=== PATIENT | female | born 1990 | race Caucasian/White ===

== ENCOUNTER 2024-11-13 15:08 | Emergency (ER) | payer OTHER, SELFPAY ==
--- OUTSIDE RECORDS SUMMARY | 2024-11-13 15:10 | XMS_ITS | Clinical Summary ---
Author Organization [facility] Address [place], [place] [address] Care Team Providers Care Vamp Marker Name Role Phone Pcp, No Primary Care Provider Unavailabl e Allergies No known active allergies Medications traMADol (ULTRAM) 50 mg tablet Take 1 tablet by mouth every 6 hours if needed for Pain. 0 5 Active acetaminophen (TYLENOL EXTRA STRGTH) 500 mg tablet Take 1 tablet by mouth every 6 hours if needed. Max acetaminophen dose: 4000mg in 24 hrs. 0 5 Active calcium with vitamin D3 (CALCIUM 500+D) tablet Take 1 tablet by mouth once daily with a meal. 0 5 Active Social History Tobacco Use Types Packs/Day Years Used Date Smoking Tobacco: Never Alcohol Use Standard Drinks/Week Comments Not Asked 0 (1 standard drink = 0.6 oz pur e alcohol) Comments No Sex and Gender Information Value Date Recorded Sex Assigned at Not on file Legal Sex Female 7:05 PM CDT Gender Identity Not on file Sexual Orientation Not on file Obstetrics History Last Filed Vital Signs Vital Sign Reading Time Taken Comments Blood Pressure 119/80 03/11/2015 7:30 PM CDT Pulse 80 03/11/2015 7:30 PM CDT Temperature 37.2 C (99 F) 03/11/2015 7:30 PM CDT Respiratory Rate 16 03/11/2015 7:30 PM CDT Oxygen Saturation 96% 03/11/2015 7:30 PM CDT Inhaled Oxygen Concentration - - Weight 77.1 kg (170 lb) 03/11/2015 7:30 PM CDT Height 175.3 cm (5' 9.02) 03/11/2015 7:30 PM CD T Body Mass Index 25.09 03/11/2015 7:30 PM CDT Plan of Treatment Health Maintenance Due Date Last Done Comments Tdap 01/01/2003 Depression screening for age 12+ 2004 HIV for age 15-65 01/01/2007 BMI (ht and wt on same day) for age 18+ 01/01/2010 Hepatitis C screening for ag e 18-79 01/01/2010 Tetanus booster 2012 Pap test for age 21-65 01/01/2013 COVID-19 vaccine series ( season) 2024 Influenza for age 9-49 06/07/2024 Pneumococcal series for age 6-49 Aged Out No longer eligible based on patient's age to complete this topic Insurance [employer] [place] [id number] Care Teams Vamp Marker Relationship Specialty Start Date End Date Pcp, No . PCP - General 03/11/15
--- OUTSIDE RECORDS SUMMARY | 2024-11-13 15:10 | XMS_ITS | Clinical Summary ---
Author Organization [facility] Address [address] [place] [address] Care Team Providers Care Fish Culturist Name Role Phone Noemi Pettit M.D. Primary Care Provider [phone] Source Comments Patient records contain information from all sites at [facility]. For routine questions regarding patient records, call [phone] during business hours, M-F 8:00 AM - 5:00 PM Central Time. Record requests for emergency care only can be directed to [phone] at any time.[facility] Allergies Active Allergy Reactions Criticality Noted Date Comments [place] GI intolerance 07/18/2022 Fire Ant Hives (Reselect Reaction),Itching,Rash,Shortness of breath (Reselect Reaction) 07/18/2022 Gluten GI intolerance 07/18/2022 Medications * This document contains information received from the source organization and may not represent a complete record from that organization. No known medications Active Problems Problem Noted Date Diagnosed Date Depressive Disorder 12/17/2023 Fatigue 12/17/2023 Screening Examination Diabetes Mellitus 12/17/19 24 Screening Lipid 12/17/2023 Screening Examination For Thyroid Disorder 12/16 Nevus 12/17/2023 Pap Smear Examination 05/22/2023 Overview (05/22/2023): Patient due for pap smear. She has been getting regular pap smear screenings every 3 years at non [place] facilities and denies any previous abnormal results. She denies any abnormal vaginal bleeding or discharge or abdominal/pelvic pain. She recently had a complete normal STI panel and does not wish to have any repeat STI testing today. LMP 05/10/23. Assessment & Plan (05/22/2023 10:41 AM CDT): Pelvic exam was completely normal. Pap smear collected and sent for analysis; will contact patient once results are available. If results are normal, next pap smear will be due in 5 years. 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 Cancer Breast Family History 07/18/2022 Overview (05/22/2023): Mother Breast cancer at 41. Breast cancer in paternal grandmother. Patient denies any breast lumps, nipple discharge, or other symptoms. She is not had any breast imaging or genetic testing today. Assessment & Plan (05/22/2023 10:43 AM CDT): I recommended referral to breast clinic for formal discussion around appropriate breast cancer screening moving forward given her family history of breast cancer. Stress 07/18/2022 Overview (07/18/2022): 07/18/22 Multiple psychosocial and financial stressors. Bacteriuria 02/16/2018 Arcuate Uterus 11/04/2017 Overview (07/18/2022): 02/10/18 NTPA AUA 37.6wks, normal growth, post placenta, EIF still present, TRACIE 11.4cm, BPP 10/10, vtx, no PACs noted, repeat sono in 1 week, serial growth, dc caffeine, if PACs present recommend NN EKG and cardio vaz PRN ([facility]) 02/03/18- NTPA- AUA 37.3, 58%ile, normal TRACIE, BPP 10/10, normal dopplers, PACs- echo normal - if these persist after delivery will need cardio eval. , repeat 1 week () 11/11/17- NTPA AUA 24.4, 54%ile, virgilio breech, EIF noted, S=D. NIPT obtained, growth in 6 weeks () NTPA- 09/25/17 posterior placenta, normal anatomy, CSP not seen, arcuate uterus noted. Recommend growth 6 weeks (TOMAS) Seeing MFM Positive Group B Streptococcus 018 Overview (12/17/2023): 1. Patient counseled on GBS positive status/implications. 2. Discussed recommendation for IP antibiotics with patient. 3. PCN allergic: no Immunizations Immunization Administration Dates Next Due 4vHPV (discontinued) 07/25/2007,03/07/2007,12/13 DT, Pediatric 05/29/2004 DTaP (Infanrix, [employer]edia) 04/05/1997,,1992,1992, 1992 HepA Pediatric/Adolescent 12/13/2006,05/17/2006 HepB Adult 01/01/1994,07/05/1993,05/30/1993 Hib (PRP-OMP) (PedvaxHIB) 04/05/1993,1992, 1992,1992 IPV 04/05/1997,07/05/1993,1992 ,1992 Influenza, Seasonal, Injectable 06/18/2012,10/01 MCV4 (Menactra)(Discontinued) 05/17/2006 MMR 05/29/2004,04/05/1993 MPSV4 05/17/2006 PPSV23 09/14/2011 Td (Adult), adsorbed 05/29/2004 Tdap 07/18/2022(Deferred: Patient decision),12/13/2006 Family History Medical History Relation Name Comments Skin cancer Father Asif Skin cancer Maternal Grandfather Rashid Transient ischemic attack Maternal Grandmother Lorrain e Anxiety disorder Mother Melonie Breast cancer Mother Melonie 41 Depression Mother Melonie Osteoporosis Mother Melonie Migraines Mother's Sister Olesya Alcohol abuse Paternal Grandfather Akira Breast cancer Paternal Grandmother Zeina Anxiety disorder Sister Whitney Depression Sister Whitney Sleep apnea Sister Whitney Relation Name Status Comments Father Rich Maternal Grandfather Rashid Maternal Grandmother Rosa Mother Melonie Mother's Sister Olesya Paternal Grandfather Akira Paternal Grandmother Zeina Sister Whitney Social History Tobacco Use Types Packs/Day Years Used Date Smoking Tobacco: Never Smokeless Tobacco: Never Tobacco Cessation:Counseling Given: Not Answered Alcohol Use Standard Drinks/Week Comments Yes 0 (1 standard drink = 0.6 oz pur e alcohol) [facility] Utilities Answer Date Recorded In the past 12 months has th e electric, gas, oil, or water company threatened to shut off services in your home? No 12/11/2023 Humiliation, Afraid, Rape, and Kick questionnair e Answer Date Recorded Within the last year, have y ou been afraid of your partner or ex-partner? Yes 07/13/2022 Within the last year, have y ou been humiliated or emotionally abused in other ways by your partner or ex-partner? Yes Within the last year, have y ou been kicked, hit, slapped, or otherwise physically hurt by your partner or ex-partner? No 07/13/2022 Within the last year, have y ou been raped or forced to have any kind of sexual activity by your partner or ex-partner? No 07/13/2022 Social Connection and Isolation Panel [NHANES] A nswer Date Recorded In a typical week, how many times do you talk on the phone with family, friends, or neighbors? Twice a week 07/13/2022 How often do you get together with friends or re latives? Once a week 07/13/2022 How often do you attend amish or worship serv ices? Never 07/13/2022 Do you belong to any clubs o r organizations such as amish groups, unions, fraternal or athletic groups, or school groups? No 07/13/2022 How often do you attend meet ings of the clubs or organizations you belong to? Never 07/13/2022 Are you , , di vorced, , never , or living with a partner? 07/13/2022 AUDIT-C Answer Date Recorded Q1: How often do you have a drink containing alc ohol? Monthly or less 07/13/2022 Q2: How many drinks containi ng alcohol do you have on a typical day when you are drinking? 1 or 2 07/13/2022 Q3: How often do you have si x or more drinks on one occasion? Never 07/13/2022 Overall Financial Resource Strain (CARDIA) Answe r Date Recorded How hard is it for you to pa y for the very basics like food, housing, medical care, and heating? Somewhat hard 07/13/2022 PHQ-2 Answer Date Recorded PHQ-2 Score 4 12/11/2023 [facility] - Occupational Stress Questionnaire Answer Date Recorded Do you feel stress - tense, restless, nervous, or anxious, or unable to sleep at night because your mind is troubled all the time - these days? To some extent 07/13/2022 Exercise Vital Sign Answer Date Recorde d On average, how many days pe r week do you engage in moderate to strenuous exercise (like a brisk walk)? 1 day 12/11/2023 On average, how many minutes do you engage in exercise at this level? 30 min 12/11/2023 Hunger Vital Sign Answer Date Recorded Within the past 12 months, y ou worried that your food would run out before you got the money to buy more. Never true 12/11/19 24 Within the past 12 months, t he food you bought just didn't last and you didn't have money to get more. Never true 12/11/2023 PRAPARE - Transportation Answer Date Re corded In the past 12 months, has l ack of transportation kept you from medical appointments or from getting medications? No 03/2024 In the past 12 months, has l ack of transportation kept you from meetings, work, or from getting things needed for daily living? No 12/11/2023 Depression Answer Date Recor ded PHQ-9 Total Score (max 27) 12 12/10 Nutrition Answer Date Recorded On average, how many serving s of fruits and vegetables do you eat per day (serving size is equal to 1 cup or approximately the size of a tennis ball)? 5 or more 12/11/2023 Dental Answer Date Recorded Dental: Regular Dentist No 07/13/20 22 Employment Answer Date Recorded Employment status Employed and actively working without restrictions 12/11/2023 Housing Stability Answer Date Recorded What is your living situation today? I have a [facility] [place] place to live 12/11/2023 Education Answer Date Recorded What is the highest level of school you have completed or the highest degree you have received? Associate degree: occupational, technical, or vocational program 07/13/2022 Comments Unknown Sex and Gender Information Value Date Recorded Sex Assigned at Female 07/13/2022 8:26 PM CDT Legal Sex Female 3:04 PM [employer] Gender Identity Female 07/13/2022 8:12 PM CDT Sexual Orientation Bisexual 07/13/2022 8: 26 PM CDT Last Filed Vital Signs Vital Sign Reading Time Taken Comments Blood Pressure 111/73 12/17/2023 2:54 PM CDT Pulse 82 01/07/2024 10:35 AM CDT Temperature 37 C (98.6 F) 01/07/2024 10:35 AM CDT Respiratory Rate - - Oxygen Saturation 98% 01/07/2024 10:35 AM CDT Inhaled Oxygen Concentration - - Weight 71.3 kg (157 lb 4.8 oz) 12/17/2023 2:54 P M CDT Height 176.5 cm (5' 9.49) 12/17/2023 2:54 PM CD T Body Mass Index 22.9 12/17/2023 2:54 PM CDT Plan of Treatment Health Maintenance Due Date Last Done Comments DTaP,Tdap,and Td Vaccines (9 - Td or Tdap) 12/13/2016 12/13/2006, 05/29/2004, 05/29/2004, Additional history exists Depression Monitoring (PHQ-9) 04/11/2024 12/11/2023 COVID-19 Vaccine ( season) 2024 Influenza Vaccine (#1) 2024 06/18/2012, 2007 Depression Monitoring (PHQ-9 for quality tracking) 10/07/2024 Cervical/Vaginal Cancer Screening 05/22/2028 05/22/2023, 05/22/2023 Hepatitis B Vaccines Completed 01/01/1994, 07/05/1993, 05/30/1993 IPV Vaccines Completed 04/05/1997, 06/08, 1992, Additional history exists HPV Vaccines Completed 07/25/2007, 10/2006, 12/13/2006 Pneumococcal vaccine (0-49 years) Aged Out 09/14/2011 No longer eligible based on patient's age to complete this topic Hepatitis C Screening Completed 04/30/2023 Procedures Procedure Name Priority Date/Time Associated Diagnosis Comments HPV WITH GENOTYPING, PCR, THINPREP Routine 05/22/2023 10:19 AM CDT HCV AB SCRN W/REFLEX TO HCV PCR, S Routine 04/30/2023 9:05 AM CDT Exposure Sexually Transmitted Disease from Last 3 Months or Most Recently Relevant to Health Maintenance Results * HPV with Genotyping, PCR, ThinPrep (05/22/2023 10:19 AM CDT) Specimen Source Cervix/Endoc ervix 05/24/2023 11:54 AM CDT SDSC HPV High Risk type 16, PCR Negative Negative 05/24/2023 11:54 AM CDT SDSC HPV High Risk type 18, PCR Negative Negative 05/24/2023 11:54 AM CDT SDSC HPV other High Risk types, PCR Negative Negative 05/24/2023 11:54 AM CDT [facility] Comment: The following Other High Risk HPV types were not detected: 31, 33, 35, 39, 45, 51, 52, 56, 58, 59, 66, and 68 This test was ordered in the context of a [facility] PLANT SAFETY ENGINEER Cytology case; this result should be interpreted within the context of the PLANT SAFETY ENGINEER cytology report. ----ADDITIONAL INFORMATION---- Testing was performed using the yany HPV assay ([employer] This report is intended for use in clinical monitoring and management of patients. It is not intended for use in medical-legal applications. 05/22/2023 10:1 9 AM CDT 05/22/2023 2:09 PM CDT us Avinash Rincon [facility] M.S. LAB MICROBIOLOGY - GENERAL ORDERABLES Final Result [facility] [address] [place] [id number] [facility] [address] [place] [address] [place] [id number] * HCV Ab Scrn w/Reflex to HCV PCR, Serum (04/30/2023 9:05 AM CDT) HCV Ab Screen, S Negative Negative 04/30/2023 1:33 PM CDT [facility] Comment:Cghuxo-ks-ijqonf rat io is <1.00. Blood (Blood, Venous) 04/30/2023 9:05 AM CDT 04/30/2023 12:27 PM CDT Noemi Pettit M.D. LAB MICROBIOLOGY - BLOOD OR DERABLES Final Result [facility] [address] [place] [address] [facility] [address] [place] [id number] from Last 3 Months or Most Recently Relevant to Health Maintenance Insurance [facility] [employer] [employer] [employer] Care Teams Fish Culturist Relationship Specialty Start Date End Date Noemi Pettit M.D. [address] [place] [phone] PCP - General Family Medicine 07/13/22
[2024-11-13 15:20] VITALS: BP 111/75; PULSE 64; RESP 12; TEMP 36.8; O2SAT 97; BMI 21.5
--- NOTE | 2024-11-13 16:05 | CRLHL7_ITS ---
For Patients: As a result of the Century Cures Act, medical imaging exams and procedure reports are released immediately into your electronic medical record. You may view this report before your referring provider. If you have questions, please contact your health care provider. INDICATION: Right lower quadrant pain. TECHNIQUE: CT of the abdomen and pelvis acquired with 74 cc Isovue 370 IV contrast. Coronal and sagittal reconstructions. COMPARISON: None. FINDINGS: Lower chest: Unremarkable. Liver: Normal in size and attenuation. Few subcentimeter hypodense lesions are too small to characterize but likely benign. Gallbladder and bile ducts: Unremarkable. No biliary dilation. Spleen: Unremarkable. Pancreas: Unremarkable. Adrenal glands: Unremarkable. Kidneys, Ureters, and Bladder: Symmetric enhancement. Subcentimeter bilateral renal cortical hypodensities are too small to characterize. No hydronephrosis or obstructing stones. No bladder wall thickening. Reproductive organs: Uterus is unremarkable. There is a small amount of fluid in the upper vaginal canal which is likely physiologic. Simple appearing 2.0 cm left adnexal cyst or dominant follicle. GI tract/Peritoneum: Scattered mildly prominent fluid-filled distal small bowel loops leading up to the ileocecal valve, without evidence of obstruction. Findings may represent a nonspecific enteritis. Moderate amount of stool throughout the colon. Negative appendix. No intraperitoneal free air or fluid. Vasculature: Abdominal aorta is normal in caliber. Mesenteric arteries appear patent. Lymph nodes: No lymphadenopathy. Abdominal Wall: Unremarkable. Bones: Unremarkable for age. IMPRESSION: 1. Scattered mildly prominent fluid-filled distal small bowel loops may represent a nonspecific enteritis. 2. No evidence of bowel obstruction. The appendix is negative. Please note that all CT scans at this facility use dose modulation, iterative reconstruction, and/or weight-based dosing when appropriate to reduce radiation dose to as low as reasonably achievable. Dictated by Holly Mariano MD @ 11/13/2024 6:53:33 PM (Electronically Signed)
--- NOTE | 2024-11-13 16:06 | ED_ITS ---
HPI - Abdominal Pain General Chief Complaint: Abdominal Pain Stated Complaint: Lowr right Quadrant pain Time Seen by Provider: 11/13/24 15:17 History of Present Illness HPI narrative: This 34-year-old female comes in with abdominal pain. She went to urgent care and was sent here because of a concern for possible appendicitis. The patient states that she began to have severe pain at 3:00 a.m. this morning. She did take ibuprofen and got some relief. She has not report any fevers, nausea, vomiting, diarrhea, or loss of appetite. She states that the pain is diffusely in her abdomen but seems to be more localized in the right lower quadrant. Related Data Home Medications ?Medication ?Instructions ?Recorded ?Confirmed No Known Home Medications 11/13/24 11/13/24 Allergies Allergy/AdvReac Type Severity Reaction Status Date / Time No Known Drug Allergies Allergy Verified 11/13/24 15:25 Review of Systems Status of ROS Reports: 10 or more systems reviewed and unremarkable except as noted in History and below Narrative Constitutional: No fevers, no weight gain or loss. Eyes: No discharge. No vision changes. HENT: No congestion, no sore throat, no ear pain. Cardiovascular: No chest pain, no palpitations. Respiratory: No shortness of breath, no wheezes, no cough. Gastrointestinal: No vomiting, no diarrhea. Abdominal pain as described above. Genitourinary: No dysuria, no hematuria. Musculoskeletal: Normal range of motion. Skin: No rashes, no pruritis. Neurological: No dizziness, weakness, sensory change, speech change. Endo/Heme/Allergies: No bruising or bleeding. No polydipsia. Pysch: no suicidality, no anxiety, no insomnia. All other systems reviewed and are negative. [facility] Social History Smoking Status: Never smoker Do you use any of these nicotine containing products: None How often do you have a drink containing alcohol: monthly or less AUDIT-C Alcohol total score: 1 Non-prescribed substance use: denies use Exam Narrative: Exam Narrative: Constitutional: Well-developed, well-nourished, no acute distress. HEENT: Normocephalic, atraumatic. Neck: Normal range of motion. Nontender. Supple. Heart: Regular. No murmurs. Normal rate. Intact distal pulses. Lungs: Clear to auscultation. No chest discomfort. No wheezes, rhonchi, or rales. Abdomen: Normal bowel sounds. Diffuse tenderness in the abdomen but more focused in the right lower quadrant at McBurney's point. Mild rebound tenderness. Genitalia: Deferred. Back: No midline tenderness. Normal range of motion. Extremities: Normal range of motion. No injury. Skin: Intact. No rash. Warm. No erythema or pallor. Neurologic: No altered sensation. No weakness. Alert and oriented. Psychiatric: No suicidality. No anxiety or depression. No insomnia. Nursing notes and vitals signs are reviewed. Const: Vital Signs, click to edit/add: Vital Signs - 24 hr 11/13/24 15:20 11/13/24 18:40 Temperature 98.2 F Pulse Rate [Pulse Oximeter] 64 68 Respiratory Rate 12 12 Blood Pressure [Ri ght Upper Arm] 111/75 109/65 Pulse Oximetry 97 99 Oxygen Delivery Me thod Room Air Room Air Course Vital Signs Vital signs: Initial Vital Signs Temperature 98.2 F 11/13/24 15:20 Temperature Source Temporal Artery Scan 11/13/24 15:20 Pulse Rate 64 11/13/24 15:20 Respiratory Rate 12 11/13/24 15:20 Blood Pressure 111/75 11/13/24 15:20 Blood Pressure Mean 87 11/13/24 15:20 Pulse Oximetry 97 11/13/24 15:20 Oxygen Delivery Method Room Air 11/13/24 15:20 Vital Signs Temperature 98.2 F 11/13/24 15:20 Pulse Rate 64 11/13/24 15:20 Respiratory Rate 12 11/13/24 15:20 Blood Pressure 111/75 11/13/24 15:20 Pulse Oximetry 97 11/13/24 15:20 Oxygen Delivery Method Room Air 11/13/24 15:20 Temperature 98.2 F 11/13/24 15:20 Pulse Rate 68 11/13/24 18:40 Respiratory Rate 12 11/13/24 18:40 Blood Pressure 109/65 11/13/24 18:40 Pulse Oximetry 99 11/13/24 18:40 Oxygen Delivery Method Room Air 11/13/24 18:40 MDM - Abdominal Pain MDM Narrative Medical decision making narrative: This patient comes in with abdominal pain as described above. There were enough triggers being tripped that were causing suspicion for the possibility of appendicitis so a CT scan with IV contrast is obtained. This returns negative for appendicitis and aside from some nonspecific findings that may indicated and enteritis the rest of her exam is normal. Lab results also returned with reassuring findings. Her white count is just slightly elevated. She has normal vital signs. She does state that she has a history of polycystic ovarian syndrome. This could have been a ruptured ovarian cyst causing her pain. She is okay to be discharged home. I did provide [facility] prescription for Toradol. Lab Data Labs: Lab Results 11/13/24 11/13/24 Range/Units 16:15 17:02 WBC 12.29 H (4.50-11.00) K/uL RBC 4.32 (4.00-5.20) m/uL Hgb 12.8 (12.0-16.0) gm/dL Hct 39.2 (33.0-51.0) % MCV 91 (80-100) fL MCH 30 (26-34) pg MCHC 33 (32-36) gm/dL RDW Coeff of Emma 12.0 (11.5-15.5) % Plt Count 155 (140-440) K/uL Neut % (Auto) 80.8 H (42.0-72.0) % Lymph % (Auto) 12.1 L (20-44) % Mcleod % (Auto) 6.6 (0.0-11.0) % Eos % (Auto) 0.1 (0.0-7.0) % Baso % (Auto) 0.3 (0.0-3.0) % Neut # (Auto) 9.90 H (1.7-7.0) K/uL Lymph # (Auto) 1.50 (0.90-2.90) K/uL Mcleod # (Auto) 0.80 (0.00-0.90) K/UL Eos # (Auto) 0.00 (0.00-0.50) K/uL Baso # (Auto) 0.00 (0.00-0.30) K/uL Abs Immat Gran (auto) 0.00 (0.00-0.30) K/uL Imm/Tot Granulo (auto) 0.1 % Sodium 135 (135-149) mmol/L Potassium 3.9 (3.6-5.1) mmol/L Chloride 103 (96-114) mmol/L Carbon Dioxide 24 (20-32) mmol/L Anion Gap 8 (7-15) mEq/L BUN 14 (5-24) mg/dL Creatinine 0.7 (0.5-1.5) mg/dL Estimated Creat Clear 123.93 Estimated GFR 118 ml/min Glucose 94 (60-115) mg/dL Calcium 9.1 (8.4-10.6) mg/dL HCG, Qual Negative (Negative) Imaging Data CT scan - abdomen: Radiologist's impression: 1. Scattered mildly prominent fluid-filled distal small bowel loops may represent a nonspecific enteritis. 2. No evidence of bowel obstruction. The appendix is negative. Discharge Plan Discharge Clinical Impression: Abdominal pain Patient Disposition: Home, Self-Care Condition: Stable Additional Instructions: Take medication as needed and indicated. Follow up with MD return if worsening. Prescriptions: No Action No Known Home Medications Follow Up/Referrals: Provider,Not a Local [Primary Care Provider] - Stand Alone Forms: [employer] Info Instructions
[2024-11-13 16:21] LABS: Basophils Percent Auto 0.3 % (0.0-3.0); Eosinophils Percent Auto 0.1 % (0.0-7.0); Hematocrit 39.2 % (33.0-51.0); Hemoglobin* 12.8 gm/dL (12.0-16.0); Immature Granulocytes Pct Auto 0.1 %; Lymphocytes Percent Auto 12.1 % (20-44); Mean Corpuscular HGB Conc 33 gm/dL (32-36); Mean Corpuscular Hemoglobin 30 pg (26-34); Mean Corpuscular Volume 91 fL (80-100); Monocytes Percent Auto 6.6 % (0.0-11.0); Neutrophils Percent Auto 80.8 % (42.0-72.0); Platelet Count* 155 K/uL (140-440); Red Blood Count 4.32 m/uL (4.00-5.20); White Blood Count* 12.29 K/uL (4.50-11.00)
--- OUTSIDE RECORDS SUMMARY | 2024-11-13 16:31 | XMS_ITS | Clinical Summary ---
Author Organization [facility] Address [place], [place] [address] Care Team Providers Care Wheat Buyer Name Role Phone Pcp, No Primary Care [...] to complete this topic Insurance [place] [id number] Care Teams Wheat Buyer Relationship Specialty Start Date End Date Pcp, No . PCP - General 03/11/15
--- OUTSIDE RECORDS SUMMARY | 2024-11-13 16:31 | XMS_ITS | Clinical Summary ---
Author Organization [facility] Address [address] [place] [address] Care Team Providers Care Kitchenhand Name Role Phone Noemi Pettit M.D. Primary Care Provider [phone] Source Comments Patient records contain information from all sites at [facility]. For routine questions regarding patient records, call [phone] during business hours, M-F 8:00 AM - 5:00 PM Central Time. Record requests for emergency care only can be directed to [phone] at any time.[facility] Allergies Active Allergy Reactions Criticality Noted Date Comments [place] GI intolerance 07/18/2022 Fire Ant Hives (Reselect [...] smear screenings every 3 years at non [place] facilities and denies any previous abnormal results. [...] recommend NN EKG and cardio vaz PRN ([facility]) 02/03/18- NTPA- AUA 37.3, 58%ile, normal TRACIE, [...] drink = 0.6 oz pur e alcohol) [facility] Utilities Answer Date Recorded In the past [...] week 07/13/2022 How often do you attend restorationism or taoist serv ices? 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 ----ADDITIONAL INFORMATION---- Testing was performed using the yany HPV assay ([employer] This report is intended for use in clinical monitoring and management of patients. It is not intended for use in medical-legal applications. 05/22/2023 10:1 9 AM CDT 05/22/2023 2:09 PM CDT us Avinash Rincon [facility] M.S. LAB MICROBIOLOGY - GENERAL ORDERABLES Final Result [facility] [address] [place] [id number] [facility] [address] [place] [address] [place] [id number] * HCV Ab Scrn w/Reflex to HCV PCR, Serum (04/30/2023 9:05 AM CDT) HCV Ab Screen, S Negative Negative 04/30/2023 1:33 PM CDT [facility] Comment:Rlqayf-dj-eslxtf rat io is <1.00. Blood (Blood, Venous) 04/30/2023 9:05 AM CDT 04/30/2023 12:27 PM CDT Noemi Pettit M.D. LAB MICROBIOLOGY - BLOOD OR DERABLES Final Result [facility] [address] [place] [address] [facility] [address] [place] [address] from Last 3 Months or Most Recently Relevant to Health Maintenance Insurance [employer] Care Teams Kitchenhand Relationship Specialty Start Date End Date Noemi Pettit M.D. [address] [place] [phone] PCP - General Family Medicine 07/13/22
[2024-11-13 16:33] LABS: Slide Review Reflex No
[2024-11-13 16:40] LABS: Chloride* 103 mmol/L (96-114); Sodium* 135 mmol/L (135-149)
[2024-11-13 16:41] LABS: Potassium* 3.9 mmol/L (3.6-5.1)
[2024-11-13 16:43] LABS: Anion Gap 8 mEq/L (7-15); Carbon Dioxide* 24 mmol/L (20-32); Creatinine* 0.7 mg/dL (0.5-1.5); Est. Creatinine Clearance* 123.93; Estimated Glomerular Filt Rate 118 ml/min
[2024-11-13 16:44] LABS: Blood Urea Nitrogen* 14 mg/dL (5-24); Calcium* 9.1 mg/dL (8.4-10.6); Glucose* 94 mg/dL (60-115)
[2024-11-13 17:39] LABS: HCG Qualitative Serum* Negative (Negative)
[2024-11-13 18:40] VITALS: BP 109/65; PULSE 68; RESP 12; O2SAT 99
== END 2024-11-13 19:22 | disposition home or self-care (01) ==
PROVIDERS: Emergency Provider Emergency Medicine Emergency Medical Services
DX: R10.31 Right lower quadrant pain (principal)
CPT/HCPCS: 36415; 74177; 80048; 84703; 85025; 99284; Q9967